=== PATIENT | male | born 1960 | race Caucasian/White ===

== ENCOUNTER → 2018-08-29 | Day surgery (SDC) | payer BC ==
[2018-08-27 09:19] LABS: BASOPHILS # (AUTO) 0.1 (0.0-0.1); BASOPHILS % 0.6 % (0.0-1.0); EOSINOPHILS # (AUTO) 0.9 (0.0-0.4); EOSINOPHILS % 9.5 % (0.0-6.0); HEMATOCRIT 39.3 % (38.2-49.6); HEMOGLOBIN 13.6 g/dL (14.0-18.0); LYMPHOCYTES # (AUTO) 2.5 (1.0-3.2); LYMPHOCYTES % 27.8 % (18.0-39.1); MEAN CORPUSCULAR HEMOGLOBIN 32.1 pg (28-32); MEAN CORPUSCULAR HGB CONC 34.6 g/dL (31-35); MEAN CORPUSCULAR VOLUME 92.7 fL (81-99); MONOCYTES # (AUTO) 0.7 (0.2-0.8); MONOCYTES % 7.2 % (4.4-11.3); NEUTROPHILS % 54.7 % (38.7-80.0); PLATELET COUNT 212 x10e3/uL (140-360); RED BLOOD COUNT 4.24 x10e6/uL (4.3-5.7); RED CELL DISTRIBUTION WIDTH 12.6 % (11.7-14.4)
[2018-08-27 09:48] LABS: ANION GAP 11.8 mmol/L (8-16); CALCIUM 9.2 mg/dL (8.4-10.2); CREATININE, SERUM 1.36 mg/dL (0.72-1.25); POTASSIUM 3.8 mmol/L (3.5-5.1)
[~2018-08-29] MED LIST: ASPIR 8181 MG PO; ATORVASTATIN CA10 MG PO; BENICAR HCT 201 EACH PO; BENICAR HCT 401 EACH PO; BENICAR40 MG PO; BENTYL10 MG PO; BUPIVACAINE 0.25%/EPI 30ML SDV INJ ONE; BYETTA10 MCG/0.0 INJ; DEXAMETHASONE SOD PHOS INJ 4 MG/ML VIAL IV ONE; DICYCLOMINE HCL20 MG PO; EPHEDRINE SULFATE INJ 50 MG/10 ML SYR IV ONE; FENTANYL CITRATE/PF 100MCG/2 ML INJ ONE; GELATIN SPONGE SZ 100 TOP ONE; LIDOCAINE HCL 1% LOCAL INJ 20 ML VIAL ONE; LIDOCAINE HCL 2% 30 ML TUBE ONE; LIDOCAINE HCL 2% LOCAL INJ 5 ML SDV VIAL INJ ONE; METFORMIN HCL500 MG PO; MIDAZOLAM HCL 2 MG/2 ML VIAL ONE; ONDANSETRON HCL INJ 2 MG/ML VIAL IV ONE; OZEMPIC INJ; PROPOFOL IV EMULSION 10 MG/ML 20 ML VIAL IV ONE; ROCURONIUM BROMIDE 10 MG/ML 5ML VIAL IV ONE; SEVOFLURANE INHAL SOLN 250 ML PEN BTL INH ONE; TRADJENTA5 MG PO; VIT C PO; VITAMIN B-121000 MCG PO
--- NOTE | 2018-08-29 11:19 | Operative Report ---
DATE OF PROCEDURE: August 29, 2018 PREOPERATIVE DIAGNOSIS: Chronic anterior deep anorectal fissure. POSTOPERATIVE DIAGNOSIS: Chronic anterior deep anorectal fissure. OPERATION PERFORMED: Left partial superficial lateral internal sphincterotomy and fissurectomy. ANESTHESIA: General. COMPLICATIONS: None. ESTIMATED BLOOD LOSS: Minimal. DESCRIPTION OF PROCEDURE: With the patient lying in bed in the lithotomy position and under good general anesthesia, the perineum was prepped with Betadine solution and draped in the usual manner. A standard anorectal block was then performed using 1/4 percent Marcaine and 1% Xylocaine mixed in equal parts. Examination at this point revealed large external hemorrhoids and also a deep chronic fissure at the 12 o'clock position. An incision was then made at the 3 o'clock position, and the superficial fibers of the internal ring were then brought up and divided with the cautery. This gave us a satisfactory release. After this was done, the wound was then closed with interrupted sutures of 3-0 chromic. The fissure was then resected, and all of the chronic scar tissue was removed, and new tissue was cleared in the area. Perfect hemostasis was ascertained. A Gelfoam pack impregnated with Xylocaine was placed, and a dressing was applied. The sponge, lap and needle count was correct. The patient tolerated the procedure well and returned to the recovery room in stable condition. Job#: [id number]
[2018-08-29 11:35] VITALS: BP 129/76
== END | disposition home or self-care (01) ==
LOC: OR 06:53
PROVIDERS: ATTEND Surgery
DX: K60.1 Chronic anal fissure (principal); K64.4 Residual hemorrhoidal skin tags; E66.01 Morbid (severe) obesity due to excess calories; K58.9 Irritable bowel syndrome, unspecified; E11.22 Type 2 diabetes mellitus with diabetic chronic kidney disease; I12.9 Hypertensive chronic kidney disease with stage 1 through stage 4 chronic kidney disease, or unspecified chronic kidney disease; N18.9 Chronic kidney disease, unspecified; Z01.810 Encounter for preprocedural cardiovascular examination; Z01.812 Encounter for preprocedural laboratory examination; Z79.84 Long term (current) use of oral hypoglycemic drugs; Z79.82 Long term (current) use of aspirin
CPT/HCPCS: 36415 ×2; 46200; 80048; 82948; 85025; 93005; J1100; J2001 ×2; J2250; J2405; J2704

== ENCOUNTER → 2018-10-10 | Outpatient (CLI) | payer BC ==
[~2018-10-10] MED LIST changes: -BUPIVACAINE 0.25%/EPI 30ML SDV INJ ONE; -DEXAMETHASONE SOD PHOS INJ 4 MG/ML VIAL IV ONE; -EPHEDRINE SULFATE INJ 50 MG/10 ML SYR IV ONE; -FENTANYL CITRATE/PF 100MCG/2 ML INJ ONE; +GADOBENATE DIMEGLUMINE 1 ML IV ONE; -GELATIN SPONGE SZ 100 TOP ONE; -LIDOCAINE HCL 1% LOCAL INJ 20 ML VIAL ONE; -LIDOCAINE HCL 2% 30 ML TUBE ONE; -LIDOCAINE HCL 2% LOCAL INJ 5 ML SDV VIAL INJ ONE; -MIDAZOLAM HCL 2 MG/2 ML VIAL ONE; -ONDANSETRON HCL INJ 2 MG/ML VIAL IV ONE; -PROPOFOL IV EMULSION 10 MG/ML 20 ML VIAL IV ONE; -ROCURONIUM BROMIDE 10 MG/ML 5ML VIAL IV ONE; -SEVOFLURANE INHAL SOLN 250 ML PEN BTL INH ONE
[2018-10-10 11:40] LABS: BLOOD UREA NITROGEN 19 mg/dL (7-26); BUN/CREATININE RATIO 16 (6-25); CREATININE, SERUM 1.17 mg/dL (0.72-1.25); EST GLOMERULAR FILTRATION RATE > 60 ML/MIN (60-)
--- NOTE | 2018-10-10 14:15 | Diagnostic Imaging Report ---
EXAMINATION: MRI Abdomen with and without contrast. TECHNIQUE: Axial T1 nonfat sat in and out of phase, axial T2 fat sat, coronal T2 nonfat sat, axial DWI and ADC MR images of the abdomen were obtained before and after the administration of 20 cc of gadolinium. Axial T1 fat sat GRE dynamic images in precontrast, arterial, venous and delayed phases were obtained. Heavily T2-weighted MRCP images were also performed, including thick and thin slab MRCP ASSETT and 3-D reconstructions. CLINICAL HISTORY:Elevated amylase COMPARISON: None. FINDINGS: LOWER THORAX: Unremarkable. LIVER: Normal hepatic size and contour.. Mild diffuse signal dropout of the hepatic parenchyma on out of phase images, consistent with mild steatosis.. No focal hepatic lesions. BILIARY: No intra or extrahepatic biliary ductal dilation. Normal luminal contour, with normal tapering to the ampulla. No intraluminal filling defects, strictures or extrinsic compressions.. The gallbladder has a normal appearance, without stones or sludge, thickening or pericholecystic fluid. PANCREAS: Minimal prominence of the pancreatic duct, which measures approximately 3 mm at the pancreatic head and neck. Smooth contour. No focal lesions are identified. No peripancreatic increased T2 signal, inflammatory changes, free fluid or fluid collections.. SPLEEN: No splenomegaly. ADRENALS: No nodules. KIDNEYS: No hydronephrosis or solid enhancing mass in the imaged portion of the kidneys. 3.0 x 2.4 cm T2 hyperintense, nonenhancing lesion in the lateral superior to mid right kidney (series 6, image 30). 1.3 cm intrinsically T1 hyperintense lesion in the medial interpolar right kidney (series 3, image 69), which shows no enhancement, consistent with a hemorrhagic/proteinaceous cyst. A similar 1.4 cm mildly T1 hyperintense lesion in the right inferior pole (series 3, image 77) shows no significant enhancement, consistent with a proteinaceous/hemorrhagic cyst. Bilateral subcentimeter T2 hyperintense nonenhancing lesions, consistent with small cysts.. PERITONEUM / RETROPERITONEUM: No upper abdominal free fluid. GI TRACT: The visualized bowel shows no dilation or obstruction. LYMPH NODES: No upper abdominal lymphadenopathy. VESSELS: The celiac trunk, superior and inferior mesenteric and bilateral renal arteries are patent. The portal, superior mesenteric and splenic veins are patent. No collateral circulation. BONES AND SOFT TISSUES: No abnormal bone marrow signal. No soft tissue abnormalities. IMPRESSION: 1. Minimal prominence of the pancreatic duct, however, there is smooth contour, and no focal lesions are identified. No MR evidence of acute pancreatitis. Please note that imaging studies may be normal in cases of mild pancreatitis. Correlate with serum lipase. 2. No intra or extrahepatic biliary ductal dilation. No MR evidence of cholelithiasis or choledocholithiasis. 3. Mild hepatic steatosis (calculated hepatic fraction 9.0%, hepatic fat percentage 12.1%). 4. Right renal hemorrhagic/proteinaceous and simple cysts, as described. Signed by: Dr. Luigi Burdick M.D. on 10/10/2018 2:12 PM
== END ==
LOC: MRI 10:31
PROVIDERS: ATTEND Internal Medicine Gastroenterology
DX: R74.8 Abnormal levels of other serum enzymes (principal)
CPT/HCPCS: 36415; 74183; 82565; 84520; A9577

== ENCOUNTER → 2020-03-28 | Day surgery (SDC) | payer BC, OTHER ==
[~2020-03-28] MED LIST changes: +ALLOPURINOL100 MG PO; +FENTANYL CITRATE/PF 100MCG/2 ML INJ ONE; -GADOBENATE DIMEGLUMINE 1 ML IV ONE; +HYOSCYAMINE 0.125 MG TAB ONE; +KETAMINE HCL INJ 50 MG/ML 10 ML VIAL ONE; +LIDOCAINE HCL 2% LOCAL INJ 5 ML SDV VIAL INJ ONE; +LOSARTAN POTAS100 MG PO; +MIDAZOLAM HCL 2 MG/2 ML VIAL ONE; +PROPOFOL IV EMULSION 10 MG/ML 20 ML VIAL ONE; +VITAMIN D350 MCG PO
[2020-03-28 10:35] VITALS: BP 155/97
--- NOTE | 2020-03-28 13:43 | Operative Report ---
DATE OF PROCEDURE: 03/28/2020 SURGEON: Yassine Haley MD PROCEDURE: Colonoscopy with polypectomy. INDICATIONS FOR COLONOSCOPY: Colorectal cancer screening, personal history of colon polyps, father with colon cancer. MEDICATIONS: The patient was done under MAC, please see anesthesiologist's note. PROCEDURE IN DETAIL: With the patient in the left lateral decubitus position, a flexible fiberoptic Olympus colonoscope was inserted into the rectum with ease and advanced all the way to the cecum. The scope was then withdrawn slowly. Mucosa overlying the cecum, ascending colon, and transverse colon appeared to be within normal limits. Diverticular disease was noted to involve the distal descending and the sigmoid colon. Two minute polyps were removed per hot biopsy forceps from the sigmoid colon. The rectum grossly appeared to be within normal limits. The scope was then retroflexed into the distal rectum and small internal hemorrhoids were noted, none of which was actively bleeding. The scope was then straightened out, it was subsequently withdrawn, and the patient tolerated procedure well. IMPRESSION: 1. Diverticulosis. 2. Sigmoid colon polyps x2, minute, hot biopsied. 3. Internal hemorrhoids, none actively bleeding. PLAN: Follow up histology. Initiate high-fiber, low-fat diet. Initiate high-fiber supplement. The patient might benefit from a followup colonoscopy in 3 to 5 years. Yassine Haley MD [facility] [place][id number] cc: Paolo Jamison MD
== END | disposition home or self-care (01) ==
LOC: OR 06:29
PROVIDERS: ATTEND Internal Medicine Gastroenterology
DX: Z12.11 Encounter for screening for malignant neoplasm of colon (principal); K63.5 Polyp of colon; K58.9 Irritable bowel syndrome, unspecified; K57.30 Diverticulosis of large intestine without perforation or abscess without bleeding; K64.8 Other hemorrhoids; I10 Essential (primary) hypertension; E11.9 Type 2 diabetes mellitus without complications; Z01.810 Encounter for preprocedural cardiovascular examination; Z01.812 Encounter for preprocedural laboratory examination; Z11.59 Encounter for screening for other viral diseases; Z79.84 Long term (current) use of oral hypoglycemic drugs; Z79.82 Long term (current) use of aspirin; Z80.0 Family history of malignant neoplasm of digestive organs
CPT/HCPCS: 36415; 45384; 82948; 87635; 93005; J2001; J2250; J2704; J3010; 45378

== ENCOUNTER → 2021-07-25 | Day surgery (SDC) | payer BC ==
[2021-07-24 11:40] LABS: CALCIUM 8.8 mg/dL (8.4-10.2); CREATININE, SERUM 1.12 mg/dL (0.72-1.25)
[~2021-07-25] MED LIST changes: +AMLODIPINE BESYL5 MG PO; +BUPIVACAINE HCL 0.5% INJ 30 ML VIAL INJ ONE; -FENTANYL CITRATE/PF 100MCG/2 ML INJ ONE; -HYOSCYAMINE 0.125 MG TAB ONE; +JARDIANCE25 MG PO; -KETAMINE HCL INJ 50 MG/ML 10 ML VIAL ONE; -LIDOCAINE HCL 2% LOCAL INJ 5 ML SDV VIAL INJ ONE; -MIDAZOLAM HCL 2 MG/2 ML VIAL ONE; +NEOSTIGMINE 1 MG/ML 10ML VIAL ONE; -PROPOFOL IV EMULSION 10 MG/ML 20 ML VIAL ONE; +SODIUM CHLORIDE 0.9% 50ML 100 ML ONE; +TURMERIC 450-51 EACH PO; +VIT B 12 PO
[2021-07-25 12:08] VITALS: BP 140/84
== END | disposition home or self-care (01) ==
LOC: OR 08:12
PROVIDERS: ATTEND Podiatrist Foot & Ankle Surgery
DX: M85.471 Solitary bone cyst, right ankle and foot (principal); E11.9 Type 2 diabetes mellitus without complications; I10 Essential (primary) hypertension; E78.5 Hyperlipidemia, unspecified; Z01.810 Encounter for preprocedural cardiovascular examination; Z01.812 Encounter for preprocedural laboratory examination; Z20.822 Contact with and (suspected) exposure to COVID-19; Z91.048 Other nonmedicinal substance allergy status; Z79.82 Long term (current) use of aspirin; Z79.84 Long term (current) use of oral hypoglycemic drugs
CPT/HCPCS: 14040; 28108; 36415 ×2; 80048; 82948; 88305; 93005; J0690; J2710; U0002; 88304